=== PATIENT | female | born 1945 | race Caucasian/White ===

== ENCOUNTER → 2016-11-10 11:00 | Outpatient (CLI) | payer MEDICARE ==
[~2016-11-10] VITALS: Ht 160 cm; Wt 86.4 kg
[2016-11-10 12:11] VITALS: BP 137/67; Ht 160 cm; Wt 86.4 kg
--- NOTE | 2016-11-10 12:15 | NUR ---
1110-RECD TO ROOM 2507. EDUCATIONAL HAND OUT ON PROLIA GIVEN. 1120-ASSESSMENT COMPLETED. 1130-PROLIA INJECTION GIVEN TO R ARM 1200-D/C HOME [facility].
== END | disposition home or self-care (01) ==
LOC: D.OPS 11:00
DX: M81.0 Age-related osteoporosis without current pathological fracture (principal); E55.9 Vitamin D deficiency, unspecified; N95.9 Unspecified menopausal and perimenopausal disorder

== ENCOUNTER → 2016-11-17 16:40 | Outpatient (CLI) | payer MEDICARE ==
[2016-11-10 12:11] VITALS: BMI 33.7
== END | disposition home or self-care (01) ==
LOC: D.MAMMO 11:30
DX: Z12.31 Encounter for screening mammogram for malignant neoplasm of breast (principal)

== ENCOUNTER → 2017-12-29 20:17 | Outpatient (CLI) | payer MEDICARE ==
[2016-11-10 12:11] VITALS: BMI 33.7
== END | disposition home or self-care (01) ==
LOC: D.MAMMO 11:45
DX: Z12.31 Encounter for screening mammogram for malignant neoplasm of breast (principal)

== ENCOUNTER → 2019-01-12 17:03 | Outpatient (CLI) | payer MEDICARE ==
[2016-11-10 12:11] VITALS: BMI 33.7
== END | disposition home or self-care (01) ==
LOC: D.MAMMO 11:30
PROVIDERS: ATTEND Family Medicine
DX: Z12.31 Encounter for screening mammogram for malignant neoplasm of breast (principal)

== ENCOUNTER → 2020-02-15 10:09 | Outpatient (CLI) | payer MEDICARE ==
[2016-11-10 12:11] VITALS: BMI 33.7
== END | disposition home or self-care (01) ==
LOC: D.US 10:09
PROVIDERS: ATTEND Family Medicine
DX: Z12.31 Encounter for screening mammogram for malignant neoplasm of breast (principal); R94.8 Abnormal results of function studies of other organs and systems